=== PATIENT | male | born 1940 | race Caucasian/White ===

== ENCOUNTER → 2018-10-04 | Outpatient (CLI) | payer OTHER ==
--- NOTE | 2018-10-04 17:22 | MR ---
EXAMINATION TYPE: MR lumbar spine wo con DATE OF EXAM: 10/04/2018 COMPARISON: NONE HISTORY: Rt side low back pain into rt leg TECHNIQUE: Multiplanar, multisequence imaging of the lumbar spine is performed without IV contrast. FINDINGS: Sagittal images of the lumbar spine show vertebral body heights and alignment to appear sat isfactory. Mild disc space narrowing L4-L5 level is present. Multilevel disc desiccation is seen but disc space heights otherwise are fairly well-maintained. No large posterior disc herniations are seen on sagittal images. The conus medullaris is normal in position and signal ending at mid L1 level. S ome heterogeneous endplate changes anterior L1-L2 and L4-L5 levels is noted. Mild multilevel anterior spurring is seen. Axial images show the T12-L1 level to appear within normal limits. Axial images at the L1-L2 level shows mild broad disc bulge but spinal canal is preserved and bilater al neural foramina are patent. Axial images at L2-L3 level are felt within normal limits. Axial images at L3-L4 level show mild to moderate facet degenerative changes and ligamentum flavum hy pertrophy but spinal canal is preserved. There is mild bilateral anterior inferior neural foraminal n arrowing. Axial images at the L4-L5 level show moderate broad disc bulge with central disc protrusion component effacing anterior thecal sac on axial image 8. There is mild facet degenerative changes bilaterally. There is mild to moderate bilateral neural foraminal narrowing. Axial images at the L5-S1 level show moderate facet degenerative changes bilaterally. There is campus recruiting internship ior increased signal or annular tear. Spinal canal is preserved. Bilateral neural foramina are patent . No suspicious incidental retroperitoneal findings are seen. IMPRESSION: Multilevel degenerative changes in the lumbar spine as detailed above.
== END | disposition home or self-care (01) ==
LOC: RADMRIMAIN 14:54
PROVIDERS: ATTEND Nurse Practitioner Acute Care
DX: M47.26 Other spondylosis with radiculopathy, lumbar region (principal)
CPT/HCPCS: 72148

== ENCOUNTER 2018-10-18 09:30 | Day surgery (SDC) | payer OTHER ==
[2018-10-14 11:03] VITALS: BMI 27.4
[~2018-10-18 09:30] MED LIST: LACTATED RINGERS 1,000 ML IV SCH; LIDOCAINE 1% 20 ML VIAL (10MG/ML) FOR IV START INTRADERMA PRN
[2018-10-18 10:03] VITALS: RESP 16; TEMP 98.5
[2018-10-18] MEDS ORDERED: PROPOFOL 10 MG/ML 20 ML VIAL IV ONE (11:23)
--- NOTE | 2018-10-18 11:53 | P.PCN ---
Date of Procedure: 10/18/18 Procedure(s) Performed: Procedure: Colonoscopy and polypectomy. Preoperative diagnosis: Screening for neoplasia, patient has history of polyps. Postoperative diagnosis: 1. Diverticulosis with no evidence of acute diverticulitis or strictures. 2. Two small polyps snared but no large polyps or cancer. Preparation: HalfLytely prep. Sedation: Was provided by anesthesia. Brief clinical history: The patient is a 78-year-old male who is scheduled for this evaluation for screening for neoplasia because of history of polyps in addition to age as the risk factor. His last colonoscopy was several years ago. The patient has no abdominal complaints, bleeding or anemia. Procedure: With the patient on his left lateral decubitus position and after informed consent and adequate sedation, the perianal area was inspected and it did not show any fissures or fistulas. There were no masses felt on digital r ectal examination. The Olympus CFH 190L video colonoscope was then inserted in the rectum in the usual fashion and advanced to the cecum. There were 2 small polyps around the hepatic flexure which were snared and retrieved by suction. Multiple diverticular orifices were seen scattered in the sigmoid and occasional orifice around the hepatic flexure with no evidence of acute diverticulitis or strictures. The mucosa appeared healthy. I retroflexed the endoscope in the rectum before the endoscope was withdrawn. The patient tolerated the procedure well. Plan: The patient was reassured. Discussed dietary measures. He will follow up with you as planned and I recommended repeat exam in 5 years.
[2018-10-18 12:18] VITALS: BP 117/76; PULSE 82
== END 2018-10-18 12:40 | disposition home or self-care (01) ==
LOC: ORWHC2ENDO 09:30
DX: Z12.11 Encounter for screening for malignant neoplasm of colon (principal); D12.3 Benign neoplasm of transverse colon; K57.30 Diverticulosis of large intestine without perforation or abscess without bleeding; Z86.010 Personal history of colon polyps; K21.9 Gastro-esophageal reflux disease without esophagitis; N40.0 Benign prostatic hyperplasia without lower urinary tract symptoms; M10.9 Gout, unspecified; N20.0 Calculus of kidney; Z79.891 Long term (current) use of opiate analgesic; Z79.899 Other long term (current) drug therapy
CPT/HCPCS: 88305; 45385; J2704

== ENCOUNTER → 2021-08-23 | Outpatient (CLI) | payer OTHER ==
--- NOTE | 2021-08-23 16:28 | US ---
EXAMINATION TYPE: US abdomen complete DATE OF EXAM: 08/23/2021 COMPARISON: NONE CLINICAL HISTORY: 81-year-old male R10.9 abdominal pain. RUQ pain for the past 2-3 days. TECHNIQUE: Multiple sonographic images of the abdomen are obtained. FINDINGS: EXAM MEASUREMENTS: Liver Length: 16.1 cm Gallbladder Wall: 0.3 cm CBD: 1.6 cm Spleen: 9.9 x 4.6 cm Right Kidney: 11.5 x 5.9 x 6.3 cm Left Kidney: 10.8 x 6.3 x 5.5 cm Pancreas: Obscured by bowel gas Liver: Echogenic, focal sparing near gallbladder, cyst in left lobe measuring 1.5 x 2.1 x 1.6xm Gallbladder: Not well characterize due to the presence of wall echo shadow complex. Evidence for sonographic La's sign: No CBD: Dilated CBD with internal echoes Spleen: wnl Right Kidney: Mild/moderate hydronephrosis. Left Kidney: Echogenic foci with shadowing measuring 1.) 0.8 x 0.9 x 0.6 cm lower pole 2.) 0.6 x 0.9 x 0.7 cm upper pole. No hydronephrosis. Upper IVC: wnl Abd Aorta: wnl IMPRESSION: 1. Gallbladder poorly characterized due to multiple calculi packing the lumen and causing extensive s hadowing. 2. Dilated bile duct at 1.6 cm with internal echoes within. Unable to exclude choledocholithiasis. Co rrelate with alkaline phosphatase and bilirubin levels to exclude biliary obstruction. 3. [id number] hydronephrosis right kidney. Further workup/evaluation recommended. 4. Nonobstructive left renal calculi measuring up to 9 mm. 5. Moderate hepatic steatosis.
== END | disposition home or self-care (01) ==
LOC: RADUSWWP 15:17
PROVIDERS: ATTEND Family Medicine
DX: N13.30 Unspecified hydronephrosis (principal); N20.0 Calculus of kidney; K76.0 Fatty (change of) liver, not elsewhere classified; K83.8 Other specified diseases of biliary tract; K80.20 Calculus of gallbladder without cholecystitis without obstruction
CPT/HCPCS: 76700

== ENCOUNTER → 2021-09-18 | Outpatient (CLI) | payer MEDICARE ==
--- NOTE | 2021-09-18 15:54 | US ---
EXAMINATION TYPE: US kidneys/renal and bladder DATE OF EXAM: 09/18/2021 COMPARISON: US dated 08/23/2021 CLINICAL HISTORY: N20.2. Calculus of kidney EXAM MEASUREMENTS: Right Kidney: 10.0 x 4.8 x 7.0 cm Left Kidney: 10.4 x 5.8 x 5.1 cm Post Void Residual Volume: 152.98 mL Right Kidney: moderate to severe hydro Left Kidney: lower pole stone with shadowing measures 0.9 cm. Bladder: stone measures 1.5 cm Bilateral Jets seen: Yes Normal Post Void Residual: no. IMPRESSION: 1. Moderate to severe right hydronephrosis. This may be increasing from 08/23/2021. 2. Left sided renal stones without obstruction. 3. Urinary bladder calcifications.
== END | disposition home or self-care (01) ==
LOC: RADUSWWP 15:15
PROVIDERS: ATTEND Family Medicine
DX: N13.30 Unspecified hydronephrosis (principal); N20.0 Calculus of kidney; N32.89 Other specified disorders of bladder
CPT/HCPCS: 76770

== ENCOUNTER → 2021-10-10 | Outpatient (CLI) | payer MEDICARE ==
--- NOTE | 2021-10-10 13:45 | CT ---
EXAMINATION TYPE: CT abdomen pelvis wo con DATE OF EXAM: 10/10/2021 COMPARISON: None HISTORY: Renal stones CT DLP: 732 mGycm Examination of the solid and hollow viscera is limited given the lack of contrast. FINDINGS: LUNG BASES: No evidence for nodule. No evidence for infiltrate. LIVER/GB: The gallbladder is unremarkable. Hyperdense gallbladder may reflect recent contrast study v ersus a numerous small gallstones. 1.5 cm cyst left hepatic lobe. PANCREAS: No pancreatic mass identified. No inflammatory process seen. SPLEEN: No evidence for splenomegaly. No intrasplenic lesions seen. ADRENALS: No adrenal nodules identified. No evidence for thickening. KIDNEYS: No evidence for renal mass. 9.3 mm calculus mid pole left kidney 8.7 mm calculus upper pole left kidney 7.3 mm calculus lower pole left kidney. The right kidney demonstrates 3 calculi measuring less than 5 mm. Mild hydronephrosis seen bilaterally right greater than left. There is a 1.2 cm calc ulus at the right UVJ. Also of note are several calculi within the lumen of the urinary bladder the l argest of which measures 1.3 cm. 3 additional smaller calculi are seen measuring less than 6 mm. BOWEL: Appendix has a normal appearance. No evidence of bowel obstruction. No inflammatory process. Lymph nodes: No evidence for adenopathy greater than 1 cm. Abdominal aorta: Atheromatous changes seen. No evidence for aneurysm. Genital organs: Moderate enlargement of the prostate gland. Other: No significant abnormality. IMPRESSION: 1. Bilateral nephrolithiasis. Right UVJ calculus as noted. Calculi within the lumen of the urinary bl adder. Mild right greater than left hydronephrosis.
== END | disposition home or self-care (01) ==
LOC: RADCTMAIN 13:13
PROVIDERS: ATTEND Family Medicine
DX: N13.2 Hydronephrosis with renal and ureteral calculous obstruction (principal)
CPT/HCPCS: 74176

== ENCOUNTER → 2021-10-23 | Outpatient (CLI) | payer MEDICARE ==
[2021-10-23 14:47] LABS: Basophils # (A) 0.05 X 10*3/uL (0.00-0.10); Basophils % (A) 0.7 %; Eosinophils # (A) 0.14 X 10*3/uL (0.04-0.35); HCT 51.1 % (39.6-50.0); HGB 16.8 g/dL (13.0-17.0); Immature Grans, Automated 0.6 %; Lymphocytes # (A) 2.18 X 10*3/uL (0.90-5.00); Lymphocytes % (A) 30.4 %; MCH 28.6 pg (27.0-32.0); MCHC 32.9 g/dL (32.0-37.0); MCV 86.9 fL (80.0-97.0); Mean Platelet Volume 11.5 fL (9.5-12.2); Monocytes % (A) 8.4 %; NRBC Per 100 WBC 0 /100 WBCS (0.0-0.0); Neutrophils # (A) 4.15 X 10*3/uL (1.80-7.70); Neutrophils % (A) 57.9 %; Platelet Count 215 X 10*3/uL (140-440); RBC 5.88 X 10*6/uL (4.40-5.60); RDW 13.9 % (11.5-14.5); WBC 7.16 X 10*3/uL (4.50-10.00)
[2021-10-23 14:59] LABS: African American GFR (CKD) 67.2 (60.0-200.0); Anion Gap 11.6 mmol/L (10.00-18.00); BUN/Creat Ratio 14.66 Ratio (12.00-20.00); Blood Urea Nitrogen 17.3 mg/dL (9.0-27.0); Calcium 9.4 mg/dL (8.7-10.3); Carbon Dioxide 23.8 mmol/L (20.0-27.5); Non-African American GFR(CKD) 57.9 (60.0-200.0); Potassium 4.2 mmol/L (3.5-5.5)
[2021-10-23 18:53] LABS: Appearance,Urine Clear (Clear); Bilirubin,Urine Negative (Negative); Blood,Urine Small (Negative); Color,Urine Yellow (Yellow); Ketones,Urine Negative (Negative); Nitrite,Urine Negative (Negative); PH, Urine 5.5 (5.0-8.0); Specific Gravity,Urine 1.016 (1.001-1.030); Urobilinogen,Urine 0.2 (0.2,1.0)
[2021-10-23 19:00] LABS: Bacteria,Urine None Seen /HPF (None Seen)
== END | disposition home or self-care (01) ==
LOC: LABPAT 09:44
PROVIDERS: ATTEND Urology
DX: Z01.812 Encounter for preprocedural laboratory examination (principal); N20.1 Calculus of ureter; N21.9 Calculus of lower urinary tract, unspecified
CPT/HCPCS: 36415; 80048; 81001; 85025; 87086

== ENCOUNTER 2021-10-30 09:20 | Day surgery (SDC) | payer MEDICARE ==
[2021-10-28 15:24] VITALS: BMI 25.9
--- NOTE | 2021-10-29 19:46 | P.GSHP ---
History of Present Illness H&P Date: 10/29/21 81 yo [place] with history of stones came from Dr Allison for right hydronephrosis. Evaluation led to the identification of a 1 cm dista right ureteral stone and several bladder stones. He comes for cysto lithotripsy and right ureteroscopy with laser lithotripsy - Constitutional Constitutional: Denies chills, Denies fever - EENT Eyes: denies blurred vision, denies pain Ears, nose, mouth and throat: Denies headache, Denies sore throat - Cardiovascular Cardiovascular: Denies chest pain, Denies shortness of breath - Respiratory Respiratory: Denies cough, Denies 7 - Gastrointestinal Gastrointestinal: Denies abdominal pain, Denies diarrhea, Denies nausea, Denies vomiting - Genitourinary (Female) Genitourinary: Denies dysuria, Denies hematuria - Genitourinary (Male) Genitourinary: Denies dysuria, Denies hematuria - Musculoskeletal Musculoskeletal: Denies myalgias - Integumentary Integumentary: Denies pruritus, Denies rash - Neurological Neurological: Denies numbness, Denies weakness - Psychiatric Psychiatric: Denies anxiety, Denies depression - Endocrine Endocrine: Denies fatigue, Denies weight change Past Medical History Past Medical History: GERD/Reflux, Prostate Disorder Additional Past Medical History / Comment(s): enlarged prostate, hx gallstones, kidney stones, gout, History of Any Multi-Drug Resistant Organisms: None Reported Additional Past Surgical History / Comment(s): mult surgeries for kidney stones, oral surgery, antoni cataracts Past Anesthesia/Blood Transfusion Reactions: No Reported Reaction Smoking Status: Former smoker - Past Family History Mother Family Medical History: No Reported History Medications and Allergies Home Medications Medication Instructions Recorded Confirmed Type Allopurinol [Zyloprim] 100 mg PO DAILY PRN 03/07/14 10/28/21 History Finasteride [Proscar] 5 mg PO HS 10/14/18 10/28/21 History Multivitamins, Thera [Multivitamin 1 tab PO DAILY 10/14/18 10/28/21 History (formulary)] Omeprazole 20 mg PO DAILY 10/14/18 10/28/21 History Tamsulosin [Flomax] 0.8 mg PO HS 10/14/18 10/28/21 History Allergies Allergy/AdvReac Type Severity Reaction Status Date / Time No Known Allergies Allergy Verified 10/28/21 15:12 Surgical - Exam - General well developed, well nourished, no distress - Eyes normal ocular movement, no icteric - ENT no hearing loss, no congestion - Neck no masses, trachea midline - Respiratory normal respiratory effort, clear to auscultation - Abdomen Abdomen: soft, non tender, no guarding, no rigid, no rebound - Integumentary no rash, no abnormal pigmentation - Neurologic no disoriented, no combative - Psychiatric oriented to time, oriented to person, oriented to place, speech is normal, memory intact Results - Imaging CT scan - abdomen: report reviewed, image reviewed CT scan - pelvis: report reviewed, image reviewed Assessment and Plan Assessment: Impression: bladder stones, right ureteral stone Plan: cystolithotripsy, right ureteroscopy with laser lithotripsy
[~2021-10-30 09:20] MED LIST changes: +HYDROmorphone 0.5 MG/0.5 ML SYRINGE IVP PRN; +LIDOCAINE 1% (10MG/ML) FOR IV START INTRADERMA PRN; -LIDOCAINE 1% 20 ML VIAL (10MG/ML) FOR IV START INTRADERMA PRN; +ONDANSETRON 4 MG/2 ML VIAL IVP ONE
[2021-10-30] MEDS ORDERED: ePHEDrine 50 MG/ML 1 ML VIAL ONE (10:59)
[2021-10-30] MEDS ORDERED: PROPOFOL 10 MG/ML 20 ML VIAL IV ONE (10:59)
[2021-10-30] MEDS ORDERED: fentaNYL (PF) 50 MCG/ML 2 ML AMP ONE (10:59)
[2021-10-30] MEDS ORDERED: MIDAZOLAM 2 MG/2 ML VIAL ONE (10:59)
[2021-10-30] MEDS ORDERED: PHENYLEPHRINE-0.9% NACL SYG 1,000 MCG/10 ML SYRINGE ONE (10:59)
[2021-10-30] MEDS ORDERED: LIDOCAINE 2% INJ 20 MG/ML (2 ML VIAL) ONE (10:59)
--- NOTE | 2021-10-30 11:48 | XR ---
EXAMINATION TYPE: XR KUB DATE OF EXAM: 10/30/2021 COMPARISON: CT dated 10/10/2021 INDICATION: Kidney stones. Lithotripsy today. TECHNIQUE: 2 views of the abdomen and pelvis. FINDINGS: Multiple urinary bladder calculi seen on the right side and measuring up to 16mm. Bilateral renal caleb culi are also noted measuring up to 13 mm at the lower pole of the left kidney. Degenerative changes of the lower lumbar spine. Arterial atherosclerotic calcifications. IMPRESSION: Urinary calculi as described above.
--- NOTE | 2021-10-30 12:02 | P.OP ---
Date of Procedure: 10/30/21 Preoperative Diagnosis: Bladder stones (large), right ureteral stone, bilateral renal stones Postoperative Diagnosis: Bladder stones (large), right ureteral stone (passed) I lateral renal stones Procedure(s) Performed: Cystoscopy with cystolithotripsy (large), right ureteroscopy Anesthesia: ANDRY Surgeon: Bayron Eaton Estimated Blood Loss (ml): 10 Pathology: other (Stone) Condition: stable Disposition: PACU Indications for Procedure: The patient is 81. He was identified to have right hydronephrosis due to pain. A computed tomography scan was performed by co that identified bilateral renal stones left greater than right, a large distal right ureteral stone and for bladder stones. He comes for cystoscopy lithotripsy and right ureteroscopy with laser lithotripsy. The KUB preoperatively appears to show the right ureteral and bladder stones. I will deal the renal stone secondarily. Description of Procedure: The patient is brought to the operating suite. He is given a general anesthetic. He is placed in lithotomy position with a sterile prep and drape. Cystoscopy Foroblique lens and 21-Macedonian sheath identifies a normal anterior urethra. The prostate shows trilobar obstruction with a small intravesical middle lobe. The bladder wall shows moderate trabeculation. There are several stones in the bladder. The right ureteral orifice is identified and a intubate the right orifice with the 7-Macedonian mini ureteroscope. I passed the ur eteroscope to where it appears that the stone is on fluoroscopy but this is actually a bladder stone. I then passed the ureteroscope up to the renal less on the right side and there is no stone. I removed the ureteroscope. With the 365 laser probe I then break the bladder stones which are greater than 2 cm in diameter into small fragments drained amount of the bladder. At the end of the procedure there is no active bleeding. I inspect the bladder there is no remaining stone. I removed the cystoscope and drain the bladder. The patient is awakened and returned recovery room good condition. He was d/c home upon recovery. We will deal with the renal stones with pcnl at a later date.
[2021-10-30 12:14] VITALS: TEMP 97.5
[2021-10-30 12:52] VITALS: BP 146/76; PULSE 79; RESP 16
--- NOTE | 2021-10-30 14:42 | FL ---
EXAMINATION TYPE: FL guidance operating room DATE OF EXAM: 10/30/2021 CLINICAL HISTORY: Right ureter stone. TECHNIQUE: Fluoroscopy. COMPARISON: Same day abdominal x-ray. FINDINGS: Fluoroscopic guidance was provided during right sided stone treatment procedure performed by Dr. Eaton. A total of 2 seconds of fluoroscopic time was utilized during the procedure and 3 spot images was acquired. Intraoperative images show attempted access at right UVJ. IMPRESSION: As Above.
== END 2021-10-30 13:34 | disposition home or self-care (01) ==
LOC: OR 09:20
PROVIDERS: ATTEND Urology
DX: N21.0 Calculus in bladder (principal); K21.9 Gastro-esophageal reflux disease without esophagitis; N40.0 Benign prostatic hyperplasia without lower urinary tract symptoms; Z87.442 Personal history of urinary calculi; Z87.19 Personal history of other diseases of the digestive system; Z98.42 Cataract extraction status, left eye; Z98.41 Cataract extraction status, right eye; Z98.890 Other specified postprocedural states; Z87.891 Personal history of nicotine dependence; M10.9 Gout, unspecified; Z79.899 Other long term (current) drug therapy
CPT/HCPCS: 82365; 74018; 52318; C1769; C1758; J2250; J0690; J2405; J3010; J2370; J2704; J2001

== ENCOUNTER → 2022-05-06 | Outpatient (CLI) | payer MEDICARE ==
--- NOTE | 2022-05-06 14:37 | XR ---
EXAMINATION TYPE: XR KUB DATE OF EXAM: 05/06/2022 2:06 PM CLINICAL HISTORY: Renal calculi TECHNIQUE: Two supine KUB images of the abdomen are obtained. COMPARISON: Most recent abdominal x-ray October 30, 2021. FINDINGS: Persistent 3-4 large left renal calculi measuring up to 1.5 cm lower pole level. Stable 5 t o 6 mm upper pole right renal calculus near the 12 rib. Overall nonobstructive bowel gas pattern. Osseous structures are intact. Lung bases are clear. IMPRESSION: Stable left greater than right nephrolithiasis.
== END | disposition home or self-care (01) ==
LOC: RADXRMAIN 13:50
PROVIDERS: ATTEND Urology
DX: N20.0 Calculus of kidney (principal)
CPT/HCPCS: 74018

== ENCOUNTER → 2023-02-20 | Outpatient (CLI) | payer MEDICARE ==
--- NOTE | 2023-02-20 13:30 | US ---
EXAMINATION TYPE: US arterial LE single level DATE OF EXAM: 02/20/2023 1:11 PM CLINICAL INDICATION: Male, 83 years old with history of I73.9 PERIPHERAL VASCULAR DISEASE; Pt states when he walks, his right leg hurts from hip down. History of: Smoker: Previous Hypertension: no Diabetic: no TIA/CVA: no CAD: no VT: no Vascular Ulcers: no Claudication: Right Gangrene: no Doppler Waveforms: Right: Biphasic and multiphasic. Left: Biphasic and multiphasic. Right Brachial Pressure: 154 Left Brachial Pressure: 158 Ankle-Brachial Indices: Right: 1.1 Left: 1.1 Toe Brachial Indices: Right: 0.8 Left: 0.6 IMPRESSION: Normal ankle-brachial indices bilaterally.
== END | disposition home or self-care (01) ==
LOC: RADUSWWP 12:36
PROVIDERS: ATTEND Family Medicine
DX: I73.9 Peripheral vascular disease, unspecified (principal); M25.551 Pain in right hip; M79.604 Pain in right leg
CPT/HCPCS: 93922

== ENCOUNTER → 2023-08-14 | Outpatient (CLI) | payer MEDICARE, OTHER ==
--- NOTE | 2023-08-15 16:53 | CA ---
Transthoracic Echo Report Name: Mitul Winslow Age: 83 Gender: M : 1940 Exam Date: 08/14/2023 16:53 Exam Location: [facility] Ht (in): 65 Wt (lb): 170 Ordering Physician: Marco Antonio Allison MD Attending/Referring Phys: Dulce Maria Oviedo [facility] [employer]er Litzy Garcia RDCS Procedure CPT: Indications: R55 Syncope Cardiac Hx: Technical Quality: Fair Contrast 1: Total Dose (mL): Contrast 2: Total Dose (mL): MEASUREMENTS (Male / Female) Normal Values 2D ECHO LV Diastolic Diameter PLAX 4.6 cm 4.2 - 5.9 / 3.9 - 5.3 cm LV Systolic Diameter PLAX 3.5 cm IVS Diastolic Thickness 1.2 cm 0.6 - 1.0 / 0.6 - 0.9 cm LVPW Diastolic Thickness 1.2 cm 0.6 - 1.0 / 0.6 - 0.9 cm LV Relative Wall Thickness 0.5 RV Internal Dim ED PLAX 2.9 cm LA Systolic Diameter LX 3.0 cm 3.0 - 4.0 / 2.7 - 3.8 cm LV Diastolic Volume MOD BP 77.6 cm??? 67 - 155 / 56 - 104 cm??? LV Systolic Volume MOD BP 32.7 cm??? 22 - 58 / 19 - 49 cm??? LV Ejection Fraction MOD BP 57.8 % >= 55 % LV Cardiac Index MOD BP 1417.0 cm???/min???m??? LV Diastolic Volume MOD 4C 62.4 cm??? LV Systolic Volume MOD 4C 28.2 cm??? LV Ejection Fraction MOD 4C 54.8 % LV Cardiac Index MOD 4C 1079.1 cm???/min???m??? LV Diastolic Length 4C 7.0 cm LV Systolic Length 4C 6.4 cm LV Diastolic Volume MOD 2C 87.5 cm??? LV Systolic Volume MOD 2C 36.3 cm??? LV Ejection Fraction MOD 2C 58.5 % LV Cardiac Index MOD 2C 1616.0 cm???/min???m??? LV Diastolic Length 2C 7.8 cm LV Systolic Length 2C 6.8 cm LA Volume 31.5 cm??? 18 - 58 / 22 - 52 cm??? LA Volume Index 16.6 cm???/m??? 16 - 28 cm???/m??? M-MODE Aortic Root Diameter MM 3.5 cm DOPPLER AV Peak Velocity 109.4 cm/s AV Peak Gradient 4.8 mmHg AI Peak Velocity 303.7 cm/s AI Peak Gradient 36.9 mmHg AI Pressure Half Time 804.1 ms Mitral E Point Velocity 58.9 cm/s Mitral A Point Velocity 98.2 cm/s Mitral E to A Ratio 0.6 MV Deceleration Time 221.3 ms MV E' Velocity 6.7 cm/s Mitral E to MV E' Ratio 8.8 TR Peak Velocity 200.9 cm/s TR Peak Gradient 16.1 mmHg Right Ventricular Systolic Press 21.5 mmHg FINDINGS Left Ventricle Left ventricular ejection fraction is estimated at 55-60 %. Left ventricular cavity size normal. Mildly increased septal wall thickness. No obvious regional wall motion abnormalities. Right Ventricle Normal right ventricular size. Right ventricular systolic pressure within normal limits. Right Atrium Normal right atrial size. Left Atrium Normal left atrial size. Mitral Valve Structurally normal mitral valve. No mitral stenosis or prolapse. Mild mitral regurgitation. Aortic Valve Trileaflet aortic valve. Mild aortic regurgitation. Tricuspid Valve Structurally normal tricuspid valve. Mild tricuspid regurgitation. Pulmonic Valve Structurally normal pulmonic valve. Trace pulmonic regurgitation. Pericardium No pericardial effusion. Aorta Normal size aortic root and proximal ascending aorta. CONCLUSIONS Left ventricular ejection fraction is estimated at 55-60 %. No obvious regional wall motion abnormalities. No significant valve pathology No significant chamber size abnormality Previewed by: Dr Cesar Spencer (Electronically Signed) Final Date: 15 August 2023 16:53
== END | disposition home or self-care (01) ==
LOC: RADECHMAIN 16:44
PROVIDERS: ATTEND Family Medicine
DX: R55 Syncope and collapse (principal)
CPT/HCPCS: 93306

== ENCOUNTER → 2023-08-17 | Outpatient (CLI) | payer MEDICARE, OTHER ==
--- NOTE | 2023-08-17 10:27 | US ---
EXAMINATION TYPE: US carotid duplex BILAT DATE OF EXAM: 08/17/2023 COMPARISON: NONE CLINICAL INDICATION: Male, 83 years old with history of R55 SYNCOPE AND COLLAPSE; Syncope with collap se TECHNIQUE: Carotid duplex ultrasound examination. Indirect Doppler criteria was utilized. FINDINGS: EXAM MEASUREMENTS: RIGHT: Peak Systolic Velocity (PSV) cm/sec ----- Right CCA: 56.0 ----- Right ICA: 76.6 ----- Right ECA: 56.2 ICA/CCA ratio: 1.37 RIGHT: End Diastole cm/sec ----- Right CCA: 8.2 ----- Right ICA: 13.1 ----- Right ECA: 7.0 LEFT: Peak Systolic Velocity (PSV) cm/sec ----- Left CCA: 65.6 ----- Left ICA: 60.7 ----- Left ECA: 66.4 ICA/CCA ratio: 0.93 LEFT: End Diastole cm/sec ----- Left CCA: 11.5 ----- Left ICA: 17.2 ----- Left ECA: 0.0 VERTEBRALS (direction of flow): Right Vertebral: Antegrade Left Vertebral: Antegrade Rhythm: Normal ACADEMIC ADMINISTRATOR NOTES: Mild plaque bilateral bifurcations. No evidence of increased velocities IMPRESSION: No hemodynamically significant internal carotid artery stenosis on either side. Criteria for Assigning % of Stenosis / Diameter reduction (Estimation based on the indirect measurements of the internal carotid artery velocities (ICA PSV). 1. Normal (no stenosis)=ICA PSV < 125 cm/s: ratio < 2.0: ICA EDV<40 cm/s. 2. Less than 50% stenosis=ICA PSV < 125 cm/s: ratio < 2.0: ICA EDV<40 cm/s. 3. 50 to 69% stenosis=ICA PSV of 125 to 230 cm/s: ration 2.0 ? 4.0: ICA EDV 40-100 cm/s. 4. Greater than 70% stenosis to near occlusion= ICA PSV > 230 cm/s: ratio > 4.0: ICA EDV > 100 cm/s. 5. Near occlusion= ICA PSV velocities may be low or undetectable: variable ratio and ICA EDV. 6. Total occlusion=unable to detect flow.
== END | disposition home or self-care (01) ==
LOC: RADUSWWP 09:19
PROVIDERS: ATTEND Family Medicine
DX: R55 Syncope and collapse (principal)
CPT/HCPCS: 93880

== ENCOUNTER → 2024-08-29 | Outpatient (CLI) | payer MEDICARE ==
--- NOTE | 2024-08-29 16:39 | US ---
EXAMINATION TYPE: US carotid duplex BILAT DATE OF EXAM: 08/29/2024 COMPARISON: US 2023 CLINICAL INDICATION: Male, 84 years old with history of I65.29 OCCLUSION AND STENOSIS OF UNSPECIFIED CAROT; TECHNIQUE: Grayscale, color Doppler and spectral Doppler evaluation of the bilateral carotid systems and vertebral arteries. Indirect Doppler criteria was utilized. FINDINGS: EXAM MEASUREMENTS: RIGHT: Peak Systolic Velocity (PSV) cm/sec ----- Right CCA: 56.1 ----- Right ICA: 39.8 ----- Right ECA: 48.2 ICA/CCA ratio: 0.7 RIGHT: End Diastole cm/sec ----- Right CCA: 9.9 ----- Right ICA: 7.5 ----- Right ECA: 0.0 LEFT: Peak Systolic Velocity (PSV) cm/sec ----- Left CCA: 53.7 ----- Left ICA: 62.5 ----- Left ECA: 68.6 ICA/CCA ratio: 1.2 LEFT: End Diastole cm/sec ----- Left CCA: 11.0 ----- Left ICA: 19.7 ----- Left ECA: 8.4 VERTEBRALS (direction of flow): Right Vertebral: Antegrade Left Vertebral: Antegrade Rhythm: Normal IMPRESSION: Right: No hemodynamically significant stenosis. Left: No hemodynamically significant stenosis. Criteria for Assigning % of Stenosis / Diameter reduction (Estimation based on the indirect measurements of the internal carotid artery velocities (ICA PSV). 1. Normal (no stenosis)=ICA PSV < 125 cm/s: ratio < 2.0: ICA EDV<40 cm/s. 2. Less than 50% stenosis=ICA PSV < 125 cm/s: ratio < 2.0: ICA EDV<40 cm/s. 3. 50 to 69% stenosis=ICA PSV of 125 to 230 cm/s: ration 2.0 ? 4.0: ICA EDV 40-100 cm/s. 4. Greater than 70% stenosis to near occlusion= ICA PSV > 230 cm/s: ratio > 4.0: ICA EDV > 100 cm/s. 5. Near occlusion= ICA PSV velocities may be low or undetectable: variable ratio and ICA EDV. 6. Total occlusion=unable to detect flow. [facility], , 08/29/2024 4:36 PM
== END | disposition home or self-care (01) ==
LOC: RADUSWWP 15:29
PROVIDERS: ATTEND Family Medicine
DX: I65.23 Occlusion and stenosis of bilateral carotid arteries (principal)
CPT/HCPCS: 93880